=== PATIENT | female | born 1960 | race Caucasian/White ===

== ENCOUNTER 2016-07-27 06:33 | Day surgery (SDC) | payer BC ==
[~2016-07-27] VITALS: Ht 167.6 cm; Wt 71.8 kg
[~2016-07-27 06:33] MED LIST: LACTATED RINGERS 1,000 ML IV SCH; SODIUM CHLORIDE FLUSH 3 ML SYR IV PRN
[2016-07-27 06:43] VITALS: BP 136/78
[2016-07-27] MEDS ORDERED: MIDAZOLAM 2 MG/2 ML (VERSED) VIAL ONE (07:15)
[2016-07-27] MEDS ORDERED: PROPOFOL 20 ML IV ONE (07:15)
[2016-07-27] MEDS ORDERED: ALFENTANIL 500 MCG/ML (ALFENTA) 5 ML AMP IV ONE ×2 (07:15)
[2016-07-27 07:54] VITALS: BP 108/70
[2016-07-27 08:04] VITALS: BP 113/71
== END 2016-07-27 08:45 | disposition home or self-care (01) ==
LOC: ASC 06:33
PROVIDERS: ATTEND Surgery
DX: Z12.11 Encounter for screening for malignant neoplasm of colon (principal); K57.30 Diverticulosis of large intestine without perforation or abscess without bleeding; I10 Essential (primary) hypertension; M85.80 Other specified disorders of bone density and structure, unspecified site
CPT/HCPCS: 36415; 45378; 84132; J2250; J7120